=== PATIENT | female | born 1960 | race Caucasian/White ===

== ENCOUNTER → 2017-02-15 | Outpatient (CLI) | payer OTHER ==
[~2017-02-15] MED LIST: ASP81CT GT; GLMP4T PO; HYDR-3583 PO; IBP600T1 PO; METF-380 PO; OMEG-82 PO; SIMV40TA2 PO; SITA100T PO; UBID100C17 PO; VALS1TAB15 PO
--- NOTE | 2017-02-18 15:32 | Diagnostic Imaging Report ---
EXAMINATION: Bilateral screening mammogram 2D views with tomosynthesis. The current study was also evaluated with a Computer Aided Detection (CAD) system. INDICATION: Screening. PERSONAL HISTORY: No current complaints stated on the questionnaire. COMPARISON: 02/03/2016. FINDINGS: The breasts are composed of scattered fibroglandular densities. There are occasional benign-appearing calcifications. Allowing for technique and positional differences, no suspicious change is seen. IMPRESSION: No significant change. ACR BI-RADS Category 2: Benign findings. Result letter will be mailed to the patient. Note: At least 10% of breast cancer is not imaged by mammography. Dictated by: Dictated on workstation # [id number]
== END ==
LOC: RAD 12:43
PROVIDERS: ATTEND Obstetrics & Gynecology
DX: Z12.31 Encounter for screening mammogram for malignant neoplasm of breast (principal)
CPT/HCPCS: 77067

== ENCOUNTER → 2018-02-28 | Outpatient (CLI) | payer OTHER ==
--- NOTE | 2018-02-28 12:53 | Diagnostic Imaging Report ---
INDICATION: Routine screening. Comparison is made with prior mammogram from 02/15/2017 and 02/03/2016. 2-D and 3-D bilateral screening mammography was performed with CAD. The current study was also evaluated with a Computer Aided Detection (CAD) system. FINDINGS: Scattered fibroglandular densities are identified bilaterally. Benign calcifications are seen bilaterally. No mass or malignant-appearing microcalcifications are identified. The axillae are unremarkable. IMPRESSION: No mammographic features suspicious for malignancy are identified. ACR BI-RADS Category 2: Benign findings. Result letter will be mailed to the patient. Note: At least 10% of breast cancer is not imaged by mammography. Dictated by: Dictated on workstation # [id number]
== END ==
LOC: RAD 09:57
PROVIDERS: ATTEND Obstetrics & Gynecology
DX: Z12.31 Encounter for screening mammogram for malignant neoplasm of breast (principal)
CPT/HCPCS: 77067

== ENCOUNTER → 2019-03-09 | Outpatient (CLI) | payer OTHER ==
--- NOTE | 2019-03-09 10:20 | Diagnostic Imaging Report ---
INDICATION: Routine screening. COMPARISON: 02/28/2018 and 02/15/2017. TECHNIQUE: 2D and 3D bilateral screening mammography was performed with CAD. FINDINGS: Scattered fibroglandular densities are identified bilaterally. There are benign calcifications throughout the right breast. No mass or malignant appearing microcalcifications are seen. The axillae are unremarkable. IMPRESSION: No mammographic features suspicious for malignancy are identified. ACR BI-RADS Category 2: Benign findings. Result letter will be mailed to the patient. Note: At least 10% of breast cancer is not imaged by mammography. Dictated by: Dictated on workstation # [id number]
== END ==
LOC: RAD 08:27
PROVIDERS: ATTEND Obstetrics & Gynecology
DX: Z12.31 Encounter for screening mammogram for malignant neoplasm of breast (principal); Z01.419 Encounter for gynecological examination (general) (routine) without abnormal findings
CPT/HCPCS: 77067

== ENCOUNTER → 2020-04-19 | Outpatient (CLI) | payer OTHER ==
--- NOTE | 2020-04-19 09:51 | Diagnostic Imaging Report ---
INDICATION: Screening. The current study was also evaluated with a Computer Aided Detection (CAD) system. 3-D Tomographic imaging was also performed. Comparison evaluation 03/09/2019 02/28/2018 and 02/15/2017. FINDINGS: There are scattered fibroglandular densities bilaterally. There are benign type calcifications in both breasts. There is no dominant mass, spiculated lesion or suspicious calcification identified. Skin, nipples and axilla are unremarkable. IMPRESSION: Category 2 benign ACR BI-RADS Category 2: Benign findings. Result letter will be mailed to the patient. Note: At least 10% of breast cancer is not imaged by mammography. Dictated by: Dictated on workstation # [id number]
== END ==
LOC: RAD 08:45
PROVIDERS: ATTEND Obstetrics & Gynecology
DX: Z12.31 Encounter for screening mammogram for malignant neoplasm of breast (principal)
CPT/HCPCS: 77063; 77067

== ENCOUNTER → 2021-05-18 | Outpatient (CLI) | payer OTHER ==
--- NOTE | 2021-05-18 09:33 | Diagnostic Imaging Report ---
INDICATION: Routine screening. COMPARISON is made with prior mammograms 04/19/2020 and 03/09/2019. 2-D and 3-D bilateral screening mammography was performed with CAD. Scattered fibroglandular densities are identified bilaterally. There are scattered benign calcifications throughout both breasts. A nodular density has developed in the outer aspect of the left breast mid depth, best seen on the CC view. This appears to be superiorly located based off the tomographic images. There is some density in the superior left breast. Additional views are recommended for further evaluation. No malignant-appearing microcalcifications are seen. Axillae are unremarkable. IMPRESSION: BI-RADS 0. Left breast density. Additional views are recommended for further evaluation. ACR BI-RADS Category 0: Incomplete. (Needs additional imaging evaluation). Result letter will be mailed to the patient. Note: At least 10% of breast cancer is not imaged by mammography. Dictated by: Dictated on workstation # [id number]
== END ==
LOC: RAD 08:00
PROVIDERS: ATTEND Obstetrics & Gynecology
DX: Z12.31 Encounter for screening mammogram for malignant neoplasm of breast (principal)
CPT/HCPCS: 77063; 77067

== ENCOUNTER → 2021-05-24 | Outpatient (CLI) | payer OTHER ==
--- NOTE | 2021-05-24 14:13 | Diagnostic Imaging Report ---
PROCEDURE: Pelvic complete, transabdominal and transvaginal sonogram. Limited pelvic doppler. TECHNIQUE: Multiple real-time grayscale images were obtained of the pelvis in various projections transabdominally and transvaginally. Limited pelvic duplex images were obtained. HISTORY: Abnormal endometrial cells on postmenopausal female COMPARISON: None available. FINDINGS: Uterus: The uterus is anteverted and measures 6.0 x 4.0 x 4.2 cm. There is a 2.1 cm intramural uterine fibroid. Endometrium: The endometrium is increased in thickness and measures 1.3 cm. There is no fluid within the endometrial cavity. Adnexa: Left ovary has a normal physiologic appearance. The right ovary is nonvisualized. The left ovary measures 1.7 x 1.3 x 1.6 cm. Duplex images reveal normal vascular flow to both ovaries. Other: There is no free fluid within the pelvis. IMPRESSION: 1. Abnormal thickening of the endometrium in a postmenopausal patient measuring up to 1.3 cm. 2. A 2.1 cm intramural uterine fibroid. Dictated by: Dictated on workstation # [id number]
== END ==
LOC: RAD 13:00
PROVIDERS: ATTEND Obstetrics & Gynecology
DX: D25.1 Intramural leiomyoma of uterus (principal); Z78.0 Asymptomatic menopausal state
CPT/HCPCS: 76830; 76856

== ENCOUNTER → 2021-05-31 | Outpatient (CLI) | payer OTHER ==
--- NOTE | 2021-05-31 15:51 | Diagnostic Imaging Report ---
EXAMINATION: Left breast ultrasound limited. INDICATION: Abnormal mammogram. FINDINGS: The screening mammogram performed on 05/18/2021 noted a newly developed nodular density in the upper outer aspect of the left breast. The diagnostic mammogram performed earlier today suggested that this is most likely a benign process. On this study, there is a well-circumscribed avascular hypoechoic lesion in the 12 o'clock position approximately 8 cm from the nipple. I do suspect that this corresponds to the finding on the mammogram. There is no internal vascularity but there is little through transmission. I suspect that this is a benign process such as a cyst or perhaps a benign solid lesion. In this same region, there is another smaller 4 x 3 x 4 mm hypoechoic area. This too shows little through transmission or internal vascularity and this may represent a small cyst as well. It may prove worthwhile to have a followup mammogram and ultrasound exam of the left breast in 6 months for continued evaluation of these findings. IMPRESSION: There are two small well-circumscribed avascular hypoechoic lesions in the 12 o'clock position of the left breast. The largest of these would correspond to the finding on the mammogram. These findings are most likely benign. Recommendations as above. ACR BI-RADS Category 3: Probably benign findings. Result letter will be mailed to the patient. Note: At least 10% of breast cancer is not imaged by mammography. Dictated by: Dictated on workstation # [id number]
--- NOTE | 2021-05-31 16:16 | Diagnostic Imaging Report ---
EXAMINATION: Unilateral diagnostic left mammogram with CAD. INDICATION: Abnormal screening mammogram. FINDINGS: The recent screening mammogram performed on 05/18/2021 noted a newly developed nodular density in the lateral aspect of the left breast at mid depth. This was only well visualized on the CC view. On the additional mammographic views performed today, the nodular density is again evident. This finding has a generally benign appearance. Even so, I would recommend that ultrasound be performed to better characterize this finding. IMPRESSION: Ultrasound would be recommended for further evaluation of the left breast. ACR BI-RADS Category 0: Incomplete. (Needs additional imaging evaluation). Result letter will be mailed to the patient. Note: At least 10% of breast cancer is not imaged by mammography. Dictated by: Dictated on workstation # [id number]
== END ==
LOC: RAD 14:15
PROVIDERS: ATTEND Obstetrics & Gynecology
DX: N64.9 Disorder of breast, unspecified (principal)
CPT/HCPCS: 76642; 77065; G0279

== ENCOUNTER 2021-06-29 07:28 | Outpatient (CLI) | payer OTHER ==
[~2021-06-29] VITALS: Ht 166 cm; Wt 130.0 kg
[2021-06-30] MEDS ORDERED: FEXO180T84 PO (13:58)
[2021-06-30] MEDS ORDERED: LOSA100T57 PO (13:58)
[2021-06-30] MEDS ORDERED: SIMV40TA25 PO (13:58)
[2021-06-30] MEDS ORDERED: METF-399 PO (13:58)
[2021-06-30] MEDS ORDERED: NAPR500T8 PO (13:58)
[2021-06-30] MEDS ORDERED: ASPI-999 PO (13:58)
[2021-06-30] MEDS ORDERED: EMPA25TA PO (13:58)
[2021-06-30] MEDS ORDERED: GABA300C PO (13:58)
[2021-06-30] MEDS ORDERED: HYDR25TA4 PO (13:58)
[2021-06-30] MEDS ORDERED: SITA100T12 PO (13:58)
[2021-06-30] MEDS ORDERED: INSU200I4 SQ (13:58)
[2021-06-30] MEDS ORDERED: GLIM4TAB5 PO (13:58)
== END 2021-06-30 14:09 | disposition home or self-care (01) ==
LOC: PREOP 07:28
PROVIDERS: ATTEND Obstetrics & Gynecology
DX: Z01.818 Encounter for other preprocedural examination (principal)

== ENCOUNTER 2021-07-04 08:44 | Day surgery (SDC) | payer OTHER ==
--- NOTE | 2021-07-03 19:53 | History & Physical-Surgical ---
HPO-Surgical History of Present Illness Chief Complaint: thickened endometrium, endometrial cells on pap smear unable to do biopsy in the office due to cervical stenosis Diagnosis/Surgical Indication: Thickened endometrium Procedure: hysteroscopy, dilation and curettage Date of Surgery: Jul 04, 2021 Weight (Pounds): 317 Allergies and Home Medications Allergies Coded Allergies: Sulfa (Sulfonamide Antibiotics) (Unverified Allergy, Unknown, 04/19/20) Patient Home Medication List Home Medication List Reviewed: Yes Aspirin (Aspirin) 81 Mg Tab.chew, 81 MG PO BID, (Reported) Entered as Reported by: ARASH SANFORD on 06/30/211357 Empagliflozin (Jardiance) 25 Mg Tablet, 25 MG PO DAILY, (Reported) Entered as Reported by: ARASH SANFORD on 06/30/211357 Fexofenadine HCl (Anu Allergy) 180 Mg Tablet, 180 MG PO DAILY, (Reported) Entered as Reported by: ARASH SANFORD on 06/30/211357 Gabapentin (Neurontin) 300 Mg Capsule, 300 MG PO HS, (Reported) Entered as Reported by: ARASH SANFORD on 06/30/211357 Glimepiride (Glimepiride) 4 Mg Tablet, 4 MG PO BID, (Reported) Entered as Reported by: ARASH SANFORD on 06/30/211357 Hydrochlorothiazide (Hydrochlorothiazide) 25 Mg Tablet, 25 MG PO DAILY, (Reported) Entered as Reported by: ARASH SANFORD on 06/30/211357 Insulin Degludec (Tresiba Flextouch U-200) 200 Unit/1 Ml Insuln.pen, 34 UNIT SQ HS, (Reported) Entered as Reported by: ARASH SANFORD on 06/30/211357 Losartan Potassium (Losartan Potassium) 100 Mg Tablet, 100 MG PO DAILY, (Reported) Entered as Reported by: ARASH SANFORD on 06/30/211357 Metformin HCl (Metformin HCl) 1,000 Mg Tablet, 1,000 MG PO BID, (Reported) Entered as Reported by: ARASH SANFORD on 06/30/211357 Naproxen (Naproxen) 500 Mg Tablet.dr, 500 MG PO DAILY, (Reported) Entered as Reported by: ARASH SANFORD on 06/30/21 135 Simvastatin (Simvastatin) 40 Mg Tablet, 40 MG PO HS, (Reported) Entered as Reported by: ARASH SANFORD on 06/30/21 135 Sitagliptin Phosphate (Januvia) 100 Mg Tablet, 100 MG PO DAILY, (Reported) Entered as Reported by: ARASH SANFORD on 06/30/21 135 Discontinued Medications Hctz/Valsartan (Diovan Hct 320-25 Mg Tablet) 1 Each Tablet, 1 EACH PO DAILY, (Reported) Discontinued Reason: No Longer Taking Entered as Reported by: LEON PENNINGTON on 12/19/12 09 Hydrocodone Bit/Acetaminophen (Lortab 5 Mg) 1 Tab Tab, 1-2 EA PO Q 4 - 6 HR PRN Discontinued Reason: No Longer Taking Prescribed by: VICKIE MEJIA on 12/26/121358 Ibuprofen (Motrin) 600 Mg Tab, 600 MG PO Q6H Discontinued Reason: No Longer Taking Prescribed by: VICKIE MEJIA on 12/26/121358 [place]-3S/Dha/Epa/Fish Oil/D3 (Fish Oil + D3 Softgel) 1 Each Capsule, 1 EACH PO DAILY, (Reported) Discontinued Reason: No Longer Taking Entered as Reported by: LEON PENNINGTON on 12/19/12912 Ubidecarenone (Coq-10) 100 Mg Capsule, 100 MG PO PER PACKAGE INSTR, (Reported) Discontinued Reason: No Longer Taking Entered as Reported by: LEON PENNINGTON on 12/19/12912 Past Ommmcar-Meckmh-Zcpvgi Hx Patient Social History Marrital Status: Number of Children: 2 Number of living children: 2 Employed/Student: employed Smoking Status: Never a Smoker Recent Hopitalizations: No Have you traveled recently?: No Alcohol Use?: No Immunizations Up To Date Tetanus Booster (TDap): Unknown Date of Pneumonia Vaccine: Feb 24, 2009 Seasonal Allergies Seasonal Allergies: No Surgeries Joint Replacement (R TKR, 2019) Respiratory No Currently Using CPAP: No Cardiovascular No Hypertension Neurological No Reproductive System : No Hx Reproductive Disorders: No Sexually Transmitted Disease: No HIV/AIDS: No Female Reproductive Disorders: Menstrual Problems Genitourinary No Gastrointestinal No Musculoskeletal Yes Endocrine History of Endocrine Disorders: Yes Endocrine Disorders: Diabetes, Non-Insulin dep HEENT History of HEENT Disorders: No Loss of Vision: Denies Hearing Impairment: Denies Cancer No Psychosocial History of Psychiatric Problem: No Integumentary History of Skin or Integumenta: No Blood Transfusions Adverse Reaction to a Blood Tr: No Family Medical History Significant Family History: DVT/PE, Diabetes, Hypertension, Stroke, Other Conditions/Hx (Mom - breast Ca; Dad- Lung Ca) Exam Vital Signs Capillary Refill : General Appearance: Alert HEENT: Atraumatic Respiratory: Clear to Auscultation Cardiovascular: Regular Rate Assessment/Plan Assessment and Plan endometrial cells of pap smear thickened endometrium inability to do biopsy in the office Plan - hysteroscopy, dilation and curettage Risk of bleeding, infection, injury to bowel, bladder, ureter, surrounding tissue Will use prophylactic antibiotics and SCDs consents obtained and questions answered. NPO after midnight Admission Diagnosis Admission Status: Other (Same Day Surgery) VICKIE MEJIA DO Jul 03, 2021 19:53
[2021-07-04] VITALS (11 sets, daily range): BP systolic 105–148; BP diastolic 74–88
[~2021-07-04] VITALS: Ht 166 cm; Wt 130.0 kg
[~2021-07-04 08:44] MED LIST changes: +ASPI-999 PO; +EMPA25TA PO; +FEXO180T84 PO; +GABA300C PO; +GLIM4TAB5 PO; +HYDR25TA4 PO; +INSU200I4 SQ; +LOSA100T57 PO; +METF-399 PO; +NAPR500T8 PO; +SIMV40TA25 PO; +SITA100T12 PO
[2021-07-04] MEDS ORDERED: ceFAZolin 2 GM IV Premixed 50 ML IV ONE (09:00)
[2021-07-04] MEDS ORDERED: LACTATED RINGERS 1,000 ML IV PRN (09:00)
[2021-07-04 09:07] LABS: BILIRUBIN,URINE NEGATIVE (NEGATIVE); CLARITY,URINE CLEAR; COLOR,URINE YELLOW; GLUCOSE, URINE (UA) 3+ (NEGATIVE); KETONES,URINE NEGATIVE (NEGATIVE); LEUKOCYTE ESTERASE ,URINE NEGATIVE (NEGATIVE); NITRITE,URINE NEGATIVE (NEGATIVE); PROTEIN,URINE NEGATIVE (NEGATIVE)
[2021-07-04 09:22] LABS: BACTERIA,URINE NEGATIVE /HPF; SQUAMOUS EPITHELIAL CELL,UR RARE /HPF
[2021-07-04] MEDS ORDERED: ONDANSETRON 4 MG/2 ML (SDV) Z0FRAN IV ONE (09:30)
[2021-07-04] MEDS ORDERED: SCOPOLAMINE 1.5 MG (TRANSDERM-SCOP) PATCH TOP ONE (09:30)
[2021-07-04] MEDS ORDERED: FAMOTIDINE 20MG/2ML IV (PEPCID) IV ONE (09:30)
[2021-07-04] MEDS ORDERED: proPOfol 200 MG/20 ML (DIPRIVAN) VIAL IV ONE ×2 (09:55→11:31)
[2021-07-04] MEDS ORDERED: ONDANSETRON 4 MG/2 ML (SDV) Z0FRAN ONE (09:55)
[2021-07-04] MEDS ORDERED: LIDOCAINE PF 2% 5 ML (XYLOCAINE) VIAL ONE (09:55)
[2021-07-04] MEDS ORDERED: MIDAZOLAM 2 MG/2 ML (VERSED) VIAL ONE (09:56)
[2021-07-04] MEDS ORDERED: fentaNYL INJ 100 MCG/2 ML AMP ONE ×2 (09:56→11:18)
[2021-07-04] MEDS ORDERED: SCOPOLAMINE 1.5 MG (TRANSDERM-SCOP) PATCH ONE (09:58)
--- NOTE | 2021-07-04 10:36 | Progress Note-Pre Operative ---
Pre-Operative Progress Note H&P Reviewed The H&P was reviewed, patient examined and no changes noted. Date Seen by Provider: Jul 04, 2021 Time Seen by Provider: 10:30 Date H&P Reviewed: Jul 04, 2021 Time H&P Reviewed: 10:30 Pre-Operative Diagnosis: thickened endometrium, endometrial cells on pap, cervical stenosis VICKIE MEJIA DO Jul 04, 2021 10:36
[2021-07-04] MEDS ORDERED: PROPOFOL INJECTION 100 ML IV ONE (11:08)
[2021-07-04] MEDS ORDERED: PROPOFOL INJECTION 50 ML IV ONE (11:11)
[2021-07-04] MEDS ORDERED: ESMOLOL 100 MG/10 ML (BREVIBLOC) VIAL ONE (11:30)
--- NOTE | 2021-07-04 11:41 | Operative Report ---
Operative Report Date of Procedure/Surgery Jul 04, 2021 Surgeon (s) VICKIE MEJIA DO Contact Center Professional (s): na Post-Operative Diagnosis THICKENED ENDOMETRIUM CERVICAL STENOSIS Procedure Performed CERVICAL DILATION WITH ENDOMETRIAL BIOPSY Description of Procedure Anesthesia Type: General Estimated blood loss (mL): MINIMAL Specimen(s) collected/removed ENDOMETRIAL BIOPSY Description of the Procedure Patient had endometrial cells noted on a pap smear, so was seen in office for an endometrial biopsy. This could not be accomplished due to stenosis of the cervix. An ultrasound was done that showed endometrial lining to be 1.3 cm. She presents today for hysteroscopy, dilation and curettage. in 2012 she had a very similar scenario. Endometrial cells on pap smear and thickened endometrium. However, I was able to do a hysteroscope and there was a large solitary polyp noted which was removed with curette and grasper. Pathology cons istent with benign polypoid tissue. With informed consent, the patient was taken to the operating room where general anesthesia was found to be adequate. She was then prepped and draped in the usual sterile fashion in the dorsolithotomy position. The bladder was drained with a straight cath. A speculum was placed in the vagina and the cervix was grasped with a tenaculum. I made a cruciate incision with a 15 blade and was able to insert graduated Festus dilators into the cervix. The internal os was tight, but it did dilate. I then inserted the hysteroscope and I could visualize fatty tissue consistent with intraabdominal contents. Due to uterine perforation, I halted the hysteroscope at this time. I then was able to pass an endometrial pipelle blindly with my hand into the cervix and advance this a little way (likely just through the inner os and to the lower uterine segment) and obtained three passes for pathology specimen. This appeared to be mostly mucoid specimen, but I was able to obtain some tissue as well. At this point, I removed the instruments from the vagina. There was no active bleeding. She was awakened and taken to recovery in a stable condition. Sponge and instrument counts correct times two. Findings of the Procedure atrophic vaginal tissue (mild) cervix with stenosis, just a dimple at os Allergies and Home Medications Allergies Coded Allergies: Sulfa (Sulfonamide Antibiotics) (Unverified Allergy, Unknown, 04/19/20) Patient Home Medication List Home Medication List Reviewed: Yes Acetaminophen (Acetaminophen) 500 Mg Tablet, 1,000 MG PO TID Prescribed by: VICKIE MEJIA on 07/04/211151 Aspirin (Aspirin) 81 Mg Tab.chew, 81 MG PO BID, (Reported) Entered as Reported by: ARASH SANFORD on 06/30/211357 Last Action: Last Taken Edited Empagliflozin (Jardiance) 25 Mg Tablet, 25 MG PO DAILY, (Reported) Entered as Reported by: ARASH SANFORD on 06/30/211357 Last Action: Last Taken Edited Fexofenadine HCl (Anu Allergy) 180 Mg Tablet, 180 MG PO DAILY, (Reported) Entered as Reported by: ARASH SANFORD on 06/30/211357 Last Action: Last Taken Edited Gabapentin (Neurontin) 300 Mg Capsule, 300 MG PO HS, (Reported) Entered as Reported by: ARASH SANFORD on 06/30/211357 Last Action: Last Taken Edited Glimepiride (Glimepiride) 4 Mg Tablet, 4 MG PO BID, (Reported) Entered as Reported by: ARASH SANFORD on 06/30/211357 Last Action: Last Taken Edited Hydrochlorothiazide (Hydrochlorothiazide) 25 Mg Tablet, 25 MG PO DAILY, (Reported) Entered as Reported by: ARASH SANFORD on 06/30/211357 Last Action: Last Taken Edited Insulin Degludec (Tresiba Flextouch U-200) 200 Unit/1 Ml Insuln.pen, 34 UNIT SQ HS, (Reported) Entered as Reported by: ARASH SANFORD on 06/30/211357 Last Action: Last Taken Edited Losartan Potassium (Losartan Potassium) 100 Mg Tablet, 100 MG PO DAILY, (Reported) Entered as Reported by: ARASH SANFORD on 06/30/211357 Last Action: Last Taken Edited Metformin HCl (Metformin HCl) 1,000 Mg Tablet, 1,000 MG PO BID, (Reported) Entered as Reported by: ARASH SANFORD on 06/30/211357 Last Action: Last Taken Edited Naproxen (Naproxen) 500 Mg Tablet.dr, 500 MG PO DAILY, (Reported) Entered as Reported by: ARASH SANFORD on 06/30/211357 Last Action: Last Taken Edited Simvastatin (Simvastatin) 40 Mg Tablet, 40 MG PO HS, (Reported) Entered as Reported by: ARASH SANFORD on 06/30/211357 Last Action: Last Taken Edited Sitagliptin Phosphate (Januvia) 100 Mg Tablet, 100 MG PO DAILY, (Reported) Entered as Reported by: ARASH SANFORD on 06/30/211357 Last Action: Last Taken Edited VICKIE MEJIA DO Jul 04, 2021 11:41
[2021-07-04] MEDS ORDERED: ACET-93 PO (11:52)
--- NOTE | 2021-07-04 11:53 | Discharge Inst-Women's Service ---
Discharge Inst-Women's Serv Depart Medication/Instructions New, Converted or Re-Newed RX: Transmitted to Pharmacy Final Diagnosis thickened endometrium cervical stenosis Problems Reviewed?: Yes Consults/Follow Up Additional Follow Up: Yes ([address] Mejia to discuss pathology and follow up) Activity Activity: Activity as Tolerated Driving Instructions: No Driving for 24 Hours NO SMOKING: NO SMOKING Nothing Inside Vagina: No Douching, No [place], No Tampons Diet Discharge Diet: No Restrictions Symptoms to Report to : Bleeding Excessive, Pain Increased, Fever Over 101 Degrees F, Pain/Pressure in Jaw, Vaginal Bleeding Increase, Vaginal Discharge Foul For Any Problems or Questions: Contact Your Physician VICKIE MEJIA DO Jul 04, 2021 11:53
[2021-07-04] MEDS ORDERED: ACETAMINOPHEN 500 MG TAB (TYLENOL) PO PRN (12:00)
[2021-07-04] MEDS ORDERED: KETOROLAC 15 MG/ML VIAL IVP ONE (12:00)
[2021-07-04] MEDS ORDERED: ONDANSETRON 4 MG/2 ML (SDV) Z0FRAN IVP PRN (12:00)
[2021-07-04] MEDS ORDERED: morphine INJ 10 MG/ML 1ML (SYR OR VIAL) IVP ONE (12:00)
[2021-07-04] MEDS ORDERED: PROMETHAZINE INJ 25 MG/ML (PHENERGAN) AMP IVP ONE (12:00)
--- NOTE | 2021-07-10 13:28 | Anesthesia-General Post-Op ---
General Patient Condition Mental Status/LOC: Same as Preop Cardiovascular: Satisfactory Nausea/Vomiting: Absent Respiratory: Satisfactory Pain: Controlled Complications: Absent Post Op Complications Complications None Follow Up Care/Instructions Patient Instructions None needed. Anesthesia/Patient Condition Patient Condition Post-dated progress note: Patient was seen and doing well on 07-04 at approximately 1300 , no complaints, stable vital signs, no apparent adverse anesthesia problems. SIMON PINK DO Jul 10, 2021 13:28
== END 2021-07-04 14:20 | disposition home or self-care (01) ==
LOC: SDC 08:44
PROVIDERS: ATTEND Obstetrics & Gynecology
DX: R93.89 Abnormal findings on diagnostic imaging of other specified body structures (principal); N88.2 Stricture and stenosis of cervix uteri; I10 Essential (primary) hypertension; E11.9 Type 2 diabetes mellitus without complications; E66.01 Morbid (severe) obesity due to excess calories; Z79.82 Long term (current) use of aspirin; Z79.899 Other long term (current) drug therapy; Z79.84 Long term (current) use of oral hypoglycemic drugs; Z79.4 Long term (current) use of insulin; Z79.891 Long term (current) use of opiate analgesic; Z68.42 Body mass index [BMI] 45.0-49.9, adult; Z83.3 Family history of diabetes mellitus; Z82.3 Family history of stroke
CPT/HCPCS: 81000; 82947; 87081; 88305

== ENCOUNTER 2021-07-21 08:55 | Outpatient (RCR) | payer OTHER ==
[~2021-07-21 08:55] MED LIST changes: +ACET-93 PO
== END 2021-07-24 | disposition home or self-care (01) ==
PROVIDERS: ATTEND Orthopaedic Surgery
DX: Z47.1 Aftercare following joint replacement surgery (principal); I10 Essential (primary) hypertension; E11.9 Type 2 diabetes mellitus without complications; Z96.652 Presence of left artificial knee joint

== ENCOUNTER 2021-08-01 08:00 | Outpatient (RCR) | payer OTHER | END 2021-08-15 09:22 | disposition home or self-care (01) | PROVIDERS: ATTEND Orthopaedic Surgery | DX: Z47.1 Aftercare following joint replacement surgery (principal); I10 Essential (primary) hypertension; E11.9 Type 2 diabetes mellitus without complications; Z96.652 Presence of left artificial knee joint ==

== ENCOUNTER 2021-11-13 03:11 | Emergency (ER) | payer OTHER ==
[~2021-11-13] VITALS: Ht 165.1 cm; Wt 135.9 kg
--- NOTE | 2021-11-13 04:05 | ED EENT ---
History of Present Illness General Chief Complaint: Foreign Body Stated Complaint: F O IN LEFT EAR Nursing Triage Note: PT ARRIVAL TO ER WITH COMPLAINT OF FB IN LEFT EAR. PT STATES THAT SHE FEELS LIKE THERE IS A BUG IN HER EAR. PT STATES THAT SHE WOKE UP AN HOUR AGO WITH IT. PT STATES THAT SHE TRIED USING A Q-TIP, AND A BLOW DRYER TO GET IT OUT WITH TO AVAIL. Source: patient, other Exam Limitations: no limitations History of Present Illness Date Seen by Provider: Nov 13, 2021 Time Seen by Provider: 03:45 Initial Comments Patient to ER by private conveyance for chief complaint that amount an hour and a half prior to coming to the ER she felt a scratching in her ear like a bug got in her ear. She used a balance and hairspring assembler and a Q-tip without any success to get it come out. She has not had any surgeries on her ears. She does occasionally have fluid behind her ears and takes an antihistamine for that daily. She does not have any fever chills nausea vomiting diarrhea. Allergies and Home Medications Allergies Coded Allergies: Sulfa (Sulfonamide Antibiotics) (Unverified Allergy, Unknown, 04/19/20) Patient Home Medication List Home Medication List Reviewed: Yes Acetaminophen (Acetaminophen) 500 Mg Tablet, 1,000 MG PO TID Prescribed by: VICKIE MEJIA on 07/04/21 1152 Aspirin (Aspirin) 81 Mg Tab.chew, 81 MG PO BID, (Reported) Entered as Reported by: ARASH SANFORD on 06/30/21 1358 Empagliflozin (Jardiance) 25 Mg Tablet, 25 MG PO DAILY, (Reported) Entered as Reported by: ARASH SANFORD on 06/30/21 1358 Fexofenadine HCl (Anu Allergy) 180 Mg Tablet, 180 MG PO DAILY, (Reported) Entered as Reported by: ARASH SANFORD on 06/30/21 1358 Gabapentin (Neurontin) 300 Mg Capsule, 300 MG PO HS, (Reported) Entered as Reported by: ARASH SANFORD on 06/30/21 1358 Glimepiride (Glimepiride) 4 Mg Tablet, 4 MG PO BID, (Reported) Entered as Reported by: ARASH SANFORD on 06/30/21 1358 Hydrochlorothiazide (Hydrochlorothiazide) 25 Mg Tablet, 25 MG PO DAILY, (Reported) Entered as Reported by: ARASH SANFORD on 06/30/21 1358 Insulin Degludec (Tresiba Flextouch U-200) 200 Unit/1 Ml Insuln.pen, 34 UNIT SQ HS, (Reported) Entered as Reported by: ARASH SANFORD on 06/30/21 135 Losartan Potassium (Losartan Potassium) 100 Mg Tablet, 100 MG PO DAILY, (Reported) Entered as Reported by: ARASH SANFORD on 06/30/21 1358 Metformin HCl (Metformin HCl) 1,000 Mg Tablet, 1,000 MG PO BID, (Reported) Entered as Reported by: ARASH SANFORD on 06/30/21 135 Naproxen (Naproxen) 500 Mg Tablet.dr, 500 MG PO DAILY, (Reported) Entered as Reported by: ARASH SANFORD on 06/30/21 135 Simvastatin (Simvastatin) 40 Mg Tablet, 40 MG PO HS, (Reported) Entered as Reported by: ARASH SANFORD on 06/30/21 135 Sitagliptin Phosphate (Januvia) 100 Mg Tablet, 100 MG PO DAILY, (Reported) Entered as Reported by: ARAHS SANFORD on 06/30/21 135 Review of Systems Review of Systems Constitutional: No chills, No diaphoresis, No fever, No malaise Eyes: Denies Blindness, Denies Drainage Ears: See HPI; Denies Dizziness; Pain Nose: denies clots, denies epistaxis, denies pain Mouth: denies clots, denies pain, denies swelling All Other Systems Reviewed Negative Unless Noted: Yes Past Pljdsqy-Olkipx-Oyxxhu Hx Patient Social History Tobacco Use?: No Use of E-Cig and/or Vaping dev: No Substance use?: No Alcohol Use?: No Pt feels they are or have been: No Immunizations Up To Date Tetanus Booster (TDap): Unknown Influenza Vaccine Up-to-Date: Yes; Up-to-Date First/Initial COVID19 Vaccinat: yes Second COVID19 Vaccination Erick: yes Third COVID19 Vaccination Date: yes COVID19 Vaccine Coroner/Medical Examiner: meQuilibriumA Seasonal Allergies Seasonal Allergies: No Past Medical History Surgeries: Yes (d&c x2, L TKR 1/22, R TKR, c/s x2) Joint Replacement Respiratory: No Currently Using CPAP: No Currently Using BIPAP: No Cardiac: No Hypertension Neurological: No Reproductive Disorders: No Female Reproductive Disorders: Menstrual Problems Sexually Transmitted Disease: No HIV/AIDS: No Genitourinary: No Gastrointestinal: No Musculoskeletal: Yes Endocrine: Yes Diabetes, Non-Insulin dep HEENT: No Loss of Vision: Denies Hearing Impairment: Denies Cancer: No Psychosocial: No Integumentary: No Blood Disorders: No Adverse Reaction/Blood Tranf: No Family Medical History DVT/PE, Diabetes, Hypertension, Stroke Physical Exam Vital Signs Vital Signs - First Documented 11/13/21 03:22 Temp 36.4 Pulse 86 Resp 20 B/P (MAP) 177/73 (107) Pulse Ox 97 O2 Delivery Room Air Height, Weight, BMI Height: '" Weight: 317lbs. oz. 143.702052en; 49.00 BMI Method: General Appearance: WD/WN, no apparent distress Eyes: bilateral eye normal inspection, bilateral eye PERRL, bilateral eye EOMI Ears: left ear other (Left ear is quite sensitive but no significant excoriati on in the canal. There is what appears to be the wound of a winged insect in view.); bilateral ear auricle normal, bilateral ear TM normal Nose: normal inspection, discharge Mouth/Throat: normal mouth inspection, pharynx normal Neck: full range of motion, supple Cardiovascular: normal peripheral pulses, regular rate, rhythm Respiratory: no respiratory distress, no accessory muscle use Procedures/Interventions Ear : Ear Location: Left (Left) Foreign Body Removal: FB in the Ear Canal Use of: Ear Curette, Forceps, Irrigation Progress/Conclusion After the lidocaine had to sit for about 15 to 20 minutes we were able to easily retrieve a inch and a half long winged insect. On repeat inspection all foreign objects were gone. Progress/Results/Core Measures Results/Orders Vital Signs/I&O 11/13/21 03:22 Temp 36.4 Pulse 86 Resp 20 B/P (MAP) 177/73 (107) Pulse Ox 97 O2 Delivery Room Air Blood Pressure Mean: 107 Progress Progress Note : Time: 04:04 Progress Note Fill the ear canal up with 1% lidocaine and will let that sit for about 10 to 15 minutes. We will then attempt a retrieval using alligator ear forceps. Departure Impression Primary Impression: Ear foreign body Qualified Codes: T16.2XXA - Foreign body in left ear, initial encounter Disposition: HOME, SELF-CARE Condition: Stable Departure-Patient Inst. Decision time for Depature: 04:29 Referrals: RITCHIE IVY DO (PCP/Family) Primary Care Physician Patient Instructions: Foreign Body in Ear, Child (DC) Add. Discharge Instructions: You do not need to start antibiotic drops in the ear unless you start developing increasing redness pain or discharge from the ear. If that happens start the antibiotics every 6 hours and make a follow-up appointment with your doctor for reexamination. All discharge instructions reviewed with patient and/or family. Voiced understanding. Scripts Polymyxin B Sulf/Trimethoprim (Polytrim Eye Drops) 10,000 Unit-1 Mg/Ml Drops 2 DROPS OP Q6H for 7 Days, #10 ML 0 Refills Prov: KARIME PEDROZA 11/13/21 KARIME PEDROZA Nov 13, 2021 04:05
[2021-11-13] MEDS ORDERED: POLY10DR OP (04:35)
[2021-11-13 04:47] VITALS: BP 154/71
== END 2021-11-13 04:48 | disposition home or self-care (01) ==
LOC: EDUNIT# 03:11 → ER 03:14
DX: T16.2XXA Foreign body in left ear, initial encounter (principal)
CPT/HCPCS: 99281

== ENCOUNTER → 2022-03-26 | Outpatient (CLI) | payer OTHER ==
[~2022-03-26] MED LIST changes: +POLY10DR OP
--- NOTE | 2022-03-26 14:42 | Diagnostic Imaging Report ---
INDICATION: 6 month followup left breast nodule. COMPARISON: 05/18/2021 and 04/19/2020. TECHNIQUE: Unilateral left 2D and 3D diagnostic mammography was performed with CAD. FINDINGS: Scattered fibroglandular densities in the left breast are again noted. A circumscribed nodule in the upper left breast at mid depth is noted and appears stable. This has thin peripheral calcification. No new mass is seen. No spiculated lesion is seen. No malignant-appearing microcalcifications are identified. There are benign calcifications. The left axilla is unremarkable. IMPRESSION: Stable left mammogram and stable nodule at the 12 o'clock location of the left breast at mid depth. Even so, sonographic interrogation is recommended and will be performed today. ACR BI-RADS Category 0: Incomplete. (Needs additional imaging evaluation). Result letter will be mailed to the patient. Note: At least 10% of breast cancer is not imaged by mammography. Dictated by: Dictated on workstation # [id number]
--- NOTE | 2022-03-26 15:29 | Diagnostic Imaging Report ---
INDICATION: Six-month followup left breast nodule. COMPARISON: Correlation is made with the prior ultrasound from 05/31/2021 as well as a diagnostic mammogram performed earlier this same day. FINDINGS: Sonographic interrogation of the 12 o'clock location of the left breast 8 cm from the nipple was performed. The previously noted circumscribed hypoechoic nodule at this location is again noted measuring 4 mm x 4 mm x 6 mm, unchanged from the prior exam. A smaller nodule adjacent to this measures 3 mm x 2 mm x 3 mm, stable. No new mass is detected. IMPRESSION: Stable circumscribed hypoechoic nodules at the 12 o'clock location of the left breast 8 cm from the nipple. These have benign features. The patient may return to routine annual screening mammography. ACR BI-RADS Category 2: Benign findings. Dictated by: Dictated on workstation # [id number]
== END ==
LOC: RAD 13:30
PROVIDERS: ATTEND Obstetrics & Gynecology
DX: N63.20 Unspecified lump in the left breast, unspecified quadrant (principal)
CPT/HCPCS: 76642; 77065; G0279

== ENCOUNTER → 2022-05-25 | Outpatient (CLI) | payer OTHER ==
--- NOTE | 2022-05-25 10:47 | Diagnostic Imaging Report ---
Indication: Routine screening. Comparison is made with prior mammograms 05/18/2021 and 04/19/2020. 2-D and 3-D bilateral screening mammography was performed with CAD. Scattered fibroglandular densities are identified bilaterally. Small nodule in the upper left breast is stable. No new mass or malignant-appearing microcalcifications are seen. There are occasional benign calcifications noted. Axillae are unremarkable. IMPRESSION: BI-RADS Category 2 No mammographic features suspicious for malignancy are identified. ACR BI-RADS Category 2: Benign findings. Result letter will be mailed to the patient. Note: At least 10% of breast cancer is not imaged by mammography. Dictated by: Dictated on workstation # [id number]
== END ==
LOC: RAD 07:56
PROVIDERS: ATTEND Obstetrics & Gynecology
DX: Z12.31 Encounter for screening mammogram for malignant neoplasm of breast (principal)
CPT/HCPCS: 77063; 77067

== ENCOUNTER 2022-09-21 12:49 | Outpatient (RCR) | payer OTHER | END 2022-09-23 | disposition home or self-care (01) | PROVIDERS: ATTEND Internal Medicine | DX: M54.16 Radiculopathy, lumbar region (principal) ==

== ENCOUNTER 2022-10-18 08:00 | Outpatient (RCR) | payer OTHER ==
[~2022-10-18 08:00] MED LIST changes: -LOSA100T57 PO; +LOSA100T58 PO
== END 2022-10-24 | disposition home or self-care (01) ==
PROVIDERS: ATTEND Internal Medicine
DX: M54.16 Radiculopathy, lumbar region (principal)